=== PATIENT | female | born 1985 | race Asian ===

== ENCOUNTER 2016-09-07 10:57 | Inpatient (IN) | payer SELFPAY ==
[~2016-09-07] VITALS: Ht 154.9 cm; Wt 48.5 kg
[2016-09-14] MEDS ORDERED: LACTATED RINGERS 1,000 ML IV SCH (05:38)
[2016-09-14] MEDS ORDERED: CITRIC ACID/SODIUM CITRATE 30 ML UDC PO ONE (05:40)
[2016-09-14 07:37] VITALS: BP 110/79
[2016-09-14] MEDS ORDERED: ePHEDrine 50 MG/ML VIAL IV ONE (08:21)
[2016-09-14] MEDS ORDERED: ONDANSETRON 4 MG/2 ML VIAL IVP ONE (08:21)
[2016-09-14] MEDS ORDERED: MORPHINE PRES FREE 10 MG/10 ML AMP IV ONE (08:27)
[2016-09-14] MEDS ORDERED: fentaNYL 0.05 MG/ML VIAL ONE (08:27)
[2016-09-14] MEDS ORDERED: TRIAMCINOLONE 40 MG/ML 5ML VIAL ONE (08:57)
[2016-09-14] MEDS ORDERED: KETAMINE 500 MG/5 ML VIAL ONE (09:07)
[2016-09-14] MEDS ORDERED: NALBUPHINE 10 MG/ML AMP IVP PRN (09:15)
[2016-09-14] MEDS ORDERED: diphenhydrAMINE 50 MG/ML VIAL IVP PRN (09:15)
[2016-09-14] MEDS ORDERED: ONDANSETRON 4 MG/2 ML VIAL IVP PRN ×2 (09:15)
[2016-09-14] MEDS ORDERED: KETOROLAC 60 MG/2 ML VIAL IM PRN (09:15)
[2016-09-14] MEDS ORDERED: NALOXONE 0.4 MG/ML VIAL IVP PRN ×3 (09:15)
[2016-09-14] MEDS ORDERED: OXYTOCIN 10 UNITS/ML VIAL IM ONE (09:25)
[2016-09-14] MEDS ORDERED: MEASLES, MUMPS, AND RUBELLA 1 VIAL SQVAC PRN (09:30)
[2016-09-14] MEDS ORDERED: oxyCODONE/APAP 5/325 MG 1 TAB TAB PO PRN (09:30)
[2016-09-14] MEDS ORDERED: TRIAMCINOLONE 40 MG/ML 5ML VIAL IM ONE (09:30)
[2016-09-14] MEDS ORDERED: METHYLERGONOVINE 0.2 MG/ML AMP IM PRN (09:30)
[2016-09-14] MEDS ORDERED: TEMAZEPAM 15 MG CAP PO PRN (09:30)
[2016-09-14] MEDS ORDERED: HYDROcodone/APAP 5/325 MG 1 TAB TAB PO PRN (09:30)
[2016-09-14] MEDS ORDERED: TRIMETHOBENZAMIDE 200 MG/2 ML SYR IM PRN (09:30)
[2016-09-14] MEDS: OXYTOCIN 20 UNITS/LR PREMIX 1,000 ML IV SCH ×2 (09:34→20:48)
[2016-09-14] MEDS ORDERED: OXYTOCIN 20 UNITS/LR PREMIX 1,000 ML IV ONE (09:55)
[2016-09-14] MEDS: DOCUSATE SOD/SENNA 50/8.6 MG 1 TAB PO SCH (20:51)
[2016-09-14] MEDS ORDERED: PROMETHAZINE 25 MG/ML VIAL IM PRN (22:20)
[2016-09-15] MEDS: OXYTOCIN 20 UNITS/LR PREMIX 1,000 ML IV SCH (05:18)
[2016-09-15] MEDS: IBUPROFEN 800 MG TAB PO PRN ×3 (08:40→20:46)
[2016-09-15] MEDS: SIMETHICONE 80 MG TAB.CHEW PO PRN ×2 (08:41→14:56)
[2016-09-15] MEDS: DOCUSATE SOD/SENNA 50/8.6 MG 1 TAB PO SCH (21:00)
[2016-09-16] MEDS: IBUPROFEN 800 MG TAB PO PRN ×2 (02:18→08:39)
[2016-09-16] MEDS: SIMETHICONE 80 MG TAB.CHEW PO PRN ×2 (02:19→08:41)
== END 2016-09-16 13:40 | disposition home or self-care (01) | DRG 766 ==
LOC: MLD 09-14 05:15 → MFCC 09-14 09:51
PROVIDERS: ADMIT Obstetrics & Gynecology; ATTEND Obstetrics & Gynecology
PROC: 10D00Z1 Extraction of Products of Conception, Low, Open Approach (ICD-10-PCS; principal; 2016-09-14 08:30)
DX: O82 Encounter for cesarean delivery without indication (principal); Z87.59 Personal history of other complications of pregnancy, childbirth and the puerperium; Z3A.39 39 weeks gestation of pregnancy; Z37.0 Single live birth; Z28.21 Immunization not carried out because of patient refusal